=== PATIENT | female | born 1960 | race Caucasian/White ===

== ENCOUNTER 2016-10-25 19:48 | Emergency (ER) | payer BC ==
[2016-10-25 19:53] VITALS: BMI 23.1
[2016-10-25] MEDS ORDERED: FAMOTIDINE 20 MG/50 ML IVPB 50 ML IVPB ONE ×2 (21:59→22:22)
[2016-10-25] MEDS ORDERED: ONDANSETRON 4 MG/2 ML VIAL IVPB ONE (21:59)
[2016-10-25] MEDS ORDERED: SODIUM CHLORIDE 1,000 ML IV STA (21:59)
[2016-10-25] MEDS ORDERED: morphine CARPU-JECT 4 MG/1 ML DISP.SYRIN IVPUSH ONE (22:02)
--- NOTE | 2016-10-25 22:04 | PDOC ---
History of Present Illness - General Chief Complaint: Pain Stated Complaint: ABD PAIN, FEVER Time Seen by Provider: 10/25/16 21:35 - History of Present Illness Initial Comments: 10/25/16 22:32 Patient is a 56 yo female with a significant past medical history of recurrent UTIs who presents to the ED with complaints of generalized malaise, fevers, and abdominal pain for two days. She recently saw her PCP this morning, was diagnosed w/ UTI, had normal chest XR results and was prescribed levaquin for UTI. Patient reports her symptoms started tuesday afternoon with bodyaches and fevers. She states her symptoms progressively worsened and developed sharp diffuse abdominal pain, bilateral flank pain and lower back pain. Patient states that she has nausea without vomiting. Denies diarrhea. Patient took pepto bismol and motrin with minimal relief to symptoms. She reports urinary frequency but no dysuria. Patient reports constipation for a week but states that is not abnormal for her. Patient denies taking levaquin secondary to not being able to eat food. Denies sick contacts, chest pain, SOB. Denies vomiting and diarrhea. Denies any other symptoms. No surgical history. PMD Dr. Whitney " Past History - Past Medical History Allergies/Adverse Reactions: Allergies Allergy/AdvReac Type Severity Reaction Status Date / Time No Known Drug Allergies Allergy Verified 10/25/16 19:49 cats, dogs, dust Allergy Intermediate asthma Uncoded 10/25/16 19:49 Home Medications: Ambulatory Orders Glycerin Suppository Adult - 1 each RC ASDIR 10/25/16 Levofloxacin [Levaquin] mg PO ASDIR 10/25/16 GI Disorders: Yes (UTI) - Psycho/Social/Smoking Cessation Hx Anxiety: No Suicidal Ideation: No Smoking History: Never smoked Hx Alcohol Use: (occasional) Review of Systems - Review of Systems Comments:: 10/25/16 22:41 "GENERAL/CONSTITUTIONAL: + Fever, chills, malaise, sweating HEAD, EYES, EARS, NOSE AND THROAT: No change in vision. No ear pain or discharge. No sore throat. CARDIOVASCULAR: No chest pain or shortness of breath. RESPIRATORY: No cough, wheezing, or hemoptysis. GASTROINTESTINAL: +nausea, diffuse abdominal pain. Constipation. No diarrhea. GENITOURINARY: +flank pain, frequency No dysuria MUSCULOSKELETAL: + Body aches, back pain, SKIN: No rash NEUROLOGIC: +headache, No vertigo, loss of consciousness, or change in strength/sensation. ENDOCRINE: No increased thirst. No abnormal weight change. HEMATOLOGIC/LYMPHATIC: No anemia, easy bleeding, or history of blood clots. ALLERGIC/IMMUNOLOGIC: No hives or skin allergy. " *Physical Exam - Vital Signs Last Vital Signs Temp Pulse Resp BP Pulse Ox 101.9 F H 84 18 105/67 97 10/25/16 19:48 10/25/16 19:48 10/25/16 19:48 10/25/16 19:48 10/25/16 19:48 - Physical Exam Comments: 10/25/16 22:41 "GENERAL: Awake, alert, and fully oriented, in no acute distress HEAD: No signs of trauma EYES: PERRLA, EOMI, sclera anicteric, conjunctiva clear ENT: Auricles normal inspection, hearing grossly normal, nares patent, oropharynx clear without exudates. Moist mucosa NECK: Normal ROM, supple, no lymphadenopathy, JVD, or masses LUNGS: Breath sounds equal, clear to auscultation bilaterally. No wheezes, and no crackles HEART: Regular rate and rhythm, normal S1 and S2, no murmurs, rubs or gallops ABDOMEN: +Diffuse pain tender to palpations mostly notable in RLQ, no rebound/ guarding MUSCULOSKELETAL: +Bilateral cva tenderness Soft, nontender, normoactive bowel sounds. No guarding, no rebound. No masses EXTREMITIES: Normal range of motion, no edema. No clubbing or cyanosis. No cords, erythema, or tenderness NEUROLOGICAL: Cranial nerves II through XII grossly intact. Normal speech, normal gait SKIN: Warm, Dry, normal turgor, no rashes or lesions noted." ED Treatment Course - RADIOLOGY Radiology Studies Ordered: Category Date Time Status ABDOMEN & PELVIS CT WITH CONTR [CT] Stat CT Scan 10/25/16 21:58 Ordered Medical Decision Making - Medical Decision Making 10/25/16 22:42 56 F with generalized malaise, fevers, abdominal pain, nausea x 2 days. Diagnosed with UTI today. Exam notable for abdominal tenderness, most notably in the RLQ, as well as b/l CVAT. Possible pyelonephritis. HOwever, given abdominal tenderness, will r/o acute intraabdominal process such as acute appy vs colitis vs diverticulitis. - Labs - CTAP 10/26/16 02:27 CT abdomen/pelvis done at 11:16. Per tech, images were sent immediately to [facility]. I made multiple calls to [facility] and was told repeatedly that they could not find a CT scan on this patient. At approximately 1:25AM, after speaking with their IT department, the images were found. CT result posted at 2:[address] shows likely R pyelonephritis. Pt given 1 dose of levaquin IV. Pt has prescription for levaquin, will fill tomorrow and continue the regimen. *DC/Admit/Observation/Transfer Diagnosis at time of Disposition: Pyelonephritis - Discharge Dispostion Disposition: HOME Condition at time of disposition: Stable - Patient Instructions Printed Discharge Instructions: DI for Kidney Infection Additional Instructions: Take the Levaquin as prescribed to treat your kidney infection. Follow up with your primary doctor within 1 week for a re-evaluation. Return to the ER if you have persistent or worsening symptoms, high fevers, vomiting, or any other concerning symptoms.
[2016-10-25] MEDS ORDERED: ONDANSETRON 4 MG/2 ML VIAL ONE (22:22)
[2016-10-25] MEDS ORDERED: ACETAMINOPHEN 1000 MG/100 ML VIAL (NON FORMULARY) IVPB ONE (22:25)
[2016-10-25] MEDS ORDERED: ACETAMINOPHEN INJECTION 100 ML IVPB ONE (22:26)
[2016-10-26] MEDS ORDERED: LEVOFLOXACIN 500 MG IVPB 100 ML IVPB ONE (00:50)
[2016-10-26] MEDS: LEVOFLOXACIN 500 MG IVPB 100 ML IVPB ONE (01:00)
[2016-10-26 01:45] VITALS: BP 99/67; PULSE 55; TEMP 97.7
[2016-10-26] MEDS ORDERED: MAGNESIUM CITRATE 300 ML BOTTLE ONE (02:25)
[2016-10-26] MEDS ORDERED: MAGNESIUM CITRATE 300 ML BOTTLE PO ONE (02:26)
== END 2016-10-26 02:33 | disposition home or self-care (01) ==
LOC: FER 19:48
PROC: 3E033NZ Introduction of Analgesics, Hypnotics, Sedatives into Peripheral Vein, Percutaneous Approach (ICD-10-PCS; principal; 2016-10-25)
PROC: 3E033GC Introduction of Other Therapeutic Substance into Peripheral Vein, Percutaneous Approach (ICD-10-PCS; 2016-10-25)
PROC: 3E0337Z Introduction of Electrolytic and Water Balance Substance into Peripheral Vein, Percutaneous Approach (ICD-10-PCS; 2016-10-25)
DX: N12 Tubulo-interstitial nephritis, not specified as acute or chronic (principal); Z87.440 Personal history of urinary (tract) infections
CPT/HCPCS: 74177-TC; 99283-25

== ENCOUNTER 2016-10-28 18:14 | Emergency (ER) | payer BC ==
[2016-10-28 18:24] VITALS: BP 105/71; PULSE 77; TEMP 98.1; BMI 22.4
--- NOTE | 2016-10-28 18:42 | PDOC ---
History of Present Illness <Marcel Avalos - Last Filed: 10/28/16 18:41> - History of Present Illness Initial Comments: 10/28/16 18:48 Patient is a 56 year old female with a significant past medical history of recurrent UTIs, s/p recent ED visit (10/25/16) for pyelonephritis and started on Levaquin, who returns to the emergency department for complaints of shortness of breath and pleuritic sternal chest pain since starting Levaquin. She states she has taken Levaquin in the past, however, only 250mg and never a 500mg dose. She reports about 4 doses of Levaquin since her diagnoses for pylonephritis. The patient states she was prompted to come into the ED when she had to sit secondary to her dyspnea after walking just a short distance. The patient states her chest pain is intermittent and exacerbated with breathing. She localizes her pain to the middle of her chest and denies radiation of pain. She reports traveling to [place] and then [facility] about a month ago. She denies sick contacts, chest pain, headache, or lightheadedness. She denies nausea, vomiting, and diarrhea. She denies any other symptoms. Denies surgical history. Allergies: NKDA PCP: Dr. Vikas Whitney <Sofía Lam - Last Filed: 10/28/16 19:31> - General Chief Complaint: Shortness of Breath Stated Complaint: SOB Past History - Past Medical History GI Disorders: Yes (UTI) - Psycho/Social/Smoking Cessation Hx Anxiety: No Suicidal Ideation: No Smoking History: Never smoked Have you smoked in the past 12 months: No Information on smoking cessation initiated: No Hx Alcohol Use: No Drug/Substance Use Hx: No Substance Use Type: None <Marcel Avalos - Last Filed: 10/28/16 18:41> <Sofía Lam - Last Filed: 10/28/16 19:31> - Past Medical History Allergies/Adverse Reactions: Allergies Allergy/AdvReac Type Severity Reaction Status Date / Time No Known Drug Allergies Allergy Verified 10/28/16 18:16 cats, dogs, dust Allergy Intermediate asthma Uncoded 10/28/16 18:16 Home Medications: Ambulatory Orders Glycerin Suppository Adult - 1 each RC ASDIR 10/25/16 Levofloxacin [Levaquin] 1 tab PO ASDIR 10/25/16 Review of Systems - Review of Systems Able to Perform ROS?: Yes Comments:: 10/28/16 18:48 GENERAL/CONSTITUTIONAL: No fever or chills. No weakness. HEAD, EYES, EARS, NOSE AND THROAT: No change in vision. No ear pain or discharge. No sore throat. CARDIOVASCULAR: (+) pleuritic chest pain and shortness of breath. RESPIRATORY: No cough, wheezing, or hemoptysis. GASTROINTESTINAL: No nausea, vomiting, diarrhea or constipation. GENITOURINARY: No dysuria, frequency, or change in urination. MUSCULOSKELETAL: No joint or muscle swelling or pain. No neck or back pain. SKIN: No rash NEUROLOGIC: No headache, vertigo, loss of consciousness, or change in strength/ sensation. ENDOCRINE: No increased thirst. No abnormal weight change. HEMATOLOGIC/LYMPHATIC: No anemia, easy bleeding, or history of blood clots. ALLERGIC/IMMUNOLOGIC: No hives or skin allergy. <Sofía Lam - Last Filed: 10/28/16 19:31> *Physical Exam - Vital Signs Last Vital Signs Temp Pulse Resp BP Pulse Ox 98.1 F 77 20 105/71 100 10/28/16 18:15 10/28/16 18:15 10/28/16 18:15 10/28/16 18:15 10/28/16 18:15 <Marcel Avalos - Last Filed: 10/28/16 18:41> - Vital Signs Last Vital Signs Temp Pulse Resp BP Pulse Ox 98.1 F 77 20 105/71 100 10/28/16 18:15 10/28/16 18:15 10/28/16 18:15 10/28/16 18:15 10/28/16 18:15 - Physical Exam Comments: 10/28/16 18:49 GENERAL: Awake, alert, and fully oriented, in no acute distress HEAD: No signs of trauma EYES: PERRLA, EOMI, sclera anicteric, conjunctiva clear ENT: Auricles normal inspection, hearing grossly normal, nares patent, oropharynx clear without exudates. Moist mucosa NECK: Normal ROM, supple, no lymphadenopathy, JVD, or masses LUNGS: Breath sounds equal, clear to auscultation bilaterally. No wheezes, and no crackles HEART: Regular rate and rhythm, normal S1 and S2, no murmurs, rubs or gallops ABDOMEN: Soft, nontender, normoactive bowel sounds. No guarding, no rebound. No masses EXTREMITIES: Normal range of motion, no edema. No clubbing or cyanosis. No cords, erythema, or tenderness NEUROLOGICAL: Cranial nerves II through XII grossly intact. Normal speech, normal gait SKIN: Warm, Dry, normal turgor, no rashes or lesions noted. <Sofía Lam - Last Filed: 10/28/16 19:31> ED Treatment Course - LABORATORY CBC & Chemistry Diagram: 10/28/16 19:00 10/28/16 19:00 <Sofía Lam - Last Filed: 10/28/16 19:31> *DC/Admit/Observation/Transfer - Attestations Physician Attestion: 10/28/16 18:41 I, Dr. Marcel Avalos, attest that this document has been prepared under my direction and personally reviewed by me in its entirety. I further attest, that it accurately reflects all work, treatment, procedures and medical decision -making performed by me. <Marcel Avalos - Last Filed: 10/28/16 18:41> - Attestations Scribe Attestion: 10/28/16 18:49 Documentation prepared by Sofía Lam, acting as director medical for Marcel Avalos MD <Sofía Lam - Last Filed: 10/28/16 19:31>
[2016-10-28] MEDS ORDERED: SODIUM CHLORIDE 2,000 ML IV STA (18:48)
[2016-10-28 19:12] LABS: BASOPHIL 2.1 % (0-2.0); EOSINOPHIL 2.8 % (0-4.5); MCH 31.8 pg (25.7-33.7); MCHC 34.2 g/dl (32.0-36.0); MEAN PLT VOLUME 7.8 fl (7.5-11.1); NEUTROPHILS 64.8 % (42.8-82.8); PLATELET COUNT 313 K/MM3 (134-434); RDW 12.6 % (11.6-15.6); WHITE BLOOD COUNT 6.1 K/mm3 (4.0-10.8)
[2016-10-28 19:15] LABS: INR 1.11 (0.82-1.09); PROTHROMBIN TIME (PATIENT) 12.4 SEC (10.2-13.0)
[2016-10-28 19:18] LABS: ALBUMIN 3.4 g/dl (3.5-5.0); ALK PHOS 66 U/L (32-92); ANION GAP 9 (8-16); BILIRUBIN,TOTAL 0.5 mg/dl (0.2-1.0); CALCIUM 9.3 mg/dl (8.4-10.2); CO2 27 mmol/L (22-28); CPK 45 IU/L (26-192); CREATININE 0.8 mg/dl (0.6-1.3); GLUCOSE,RANDOM 89 mg/dl (74-106); SGOT/AST 22 U/L (10-42); SGPT/ALT 19 U/L (10-40); TOT PROT 6.5 g/dl (6.4-8.3)
[2016-10-28 19:39] LABS: TROPONIN I (DFP) < 0.03 ng/ml (0.03-0.50)
--- NOTE | 2016-10-28 23:37 | PDOC ---
*Physical Exam - Vital Signs Last Vital Signs Temp Pulse Resp BP Pulse Ox 98.1 F 77 20 105/71 100 10/28/16 18:15 10/28/16 18:15 10/28/16 18:15 10/28/16 19:01 10/28/16 18:15 - Physical Exam Comments: 10/28/16 23:33 pt signed out by Dr. Avalos as chest pain and shortness of breath pending evaluation for PE. D dimer is positive. Ct Chest performed with no evidence of PE. Patient feels improved. Will discharge home with follow up with PMD. ED Treatment Course - LABORATORY CBC & Chemistry Diagram: 10/28/16 19:00 10/28/16 19:00 - ADDITIONAL ORDERS Additional order review: Laboratory Results 10/28/16 10/28/16 19:00 19:00 INR 1.11 D-Dimer 391 H Sodium 136 Potassium 3.7 Chloride 100 Carbon Dioxide 27 Anion Gap 9 BUN 13 D Creatinine 0.8 Creat Clearance w eGFR > 60 Random Glucose 89 Calcium 9.3 Total Bilirubin 0.5 D AST 22 ALT 19 Alkaline Phosphatase 66 Creatine Kinase 45 Troponin I < 0.03 L Total Protein 6.5 Albumin 3.4 L 10/28/16 19:00 RBC 4.06 MCV 93.0 MCHC 34.2 RDW 12.6 MPV 7.8 D Neutrophils % 64.8 Lymphocytes % 20.7 D Monocytes % 9.6 Eosinophils % 2.8 Basophils % 2.1 H - RADIOLOGY Radiology Studies Ordered: Category Date Time Status CHEST CTA [CT] Stat CT Scan 10/28/16 21:38 Completed - Medications Given in the ED: ED Medications Discontinued Medications Generic Name Dose Route Start Last Admin Trade Name Freq PRN Reason Stop Dose Admin Sodium Chloride 2,000 mls @ 1,000 mls/hr 10/28/16 18:48 10/28/16 19:01 Normal Saline - IV 10/28/16 20:47 1,000 mls/hr ASDIR STA Administration *DC/Admit/Observation/Transfer Diagnosis at time of Disposition: Shortness of breath - Discharge Dispostion Disposition: HOME Condition at time of disposition: Good Admit: No - Patient Instructions Printed Discharge Instructions: DI for Shortness of Breath Additional Instructions: return to the ED for fever, severe abdominal pain, severe chest pain or shortness of breath. Make sure that you follow up with your doctor. There was a finding in your kidney that is probably related to the infection but needs to be followed up. You should have a renal ultrasound when your infection is resolved.
--- NOTE | 2016-10-29 08:20 | EKG ---
Test Reason : Blood Pressure : / mmHG Vent. Rate : 060 BPM Atrial Rate : 060 BPM P-R Int : 138 ms QRS Dur : 086 ms QT Int : 416 ms P-R-T Axes : 071 052 061 degrees QTc Int : 416 ms SINUS RHYTHM RSR' OR QR PATTERN IN V1 SUGGESTS RIGHT VENTRICULAR CONDUCTION DELAY NO PREVIOUS ECGS AVAILABLE Confirmed by LESLY CUTLER MD ([id number]) on 10/29/2016 8:20:06 AM Referred By: DR EDMONDS Confirmed By:LESLY CUTLER MD
== END 2016-10-28 23:40 | disposition home or self-care (01) ==
LOC: FER 18:14
PROC: 3E0337Z Introduction of Electrolytic and Water Balance Substance into Peripheral Vein, Percutaneous Approach (ICD-10-PCS; principal; 2016-10-28)
DX: R06.02 Shortness of breath (principal); Z87.440 Personal history of urinary (tract) infections; N12 Tubulo-interstitial nephritis, not specified as acute or chronic
CPT/HCPCS: 36415; 71010-TC; 71275-TC; 80053; 84484; 85025; 85379; 85610; 93005; 99284-25

== ENCOUNTER 2017-05-26 13:22 | Emergency (ER) | payer BC ==
--- NOTE | 2017-05-26 13:42 | PDOC ---
History of Present Illness - General Stated Complaint: CHEST PAIN Time Seen by Provider: 05/26/17 13:41 - History of Present Illness Initial Comments: 05/26/17 14:15 Pt left after evaluation by medical student. Stated she was going to [facility]. We attempted to call patient on listed number but no reply. Past History - Past Medical History Allergies/Adverse Reactions: Allergies Allergy/AdvReac Type Severity Reaction Status Date / Time No Known Drug Allergies Allergy Verified 10/28/16 18:16 cats, dogs, dust Allergy Intermediate asthma Uncoded 10/28/16 18:16 Home Medications: Ambulatory Orders Glycerin Suppository Adult - 1 each RC ASDIR 10/25/16 Levofloxacin [Levaquin] 1 tab PO ASDIR 10/25/16 GI Disorders: Yes (UTI) - Suicide/Smoking/Psychosocial Hx Smoking History: Never smoked Have you smoked in the past 12 months: No Hx Alcohol Use: No Drug/Substance Use Hx: No Substance Use Type: None *DC/Admit/Observation/Transfer - Discharge Dispostion Disposition: LEFT BEFORE YAYA MORAN - Referrals - Patient Instructions - Post Discharge Activity
== END 2017-05-26 15:00 | disposition left against medical advice (07) ==
LOC: FER 13:22
DX: Z53.21 Procedure and treatment not carried out due to patient leaving prior to being seen by health care provider (principal)
CPT/HCPCS: 71046-TC-FY; 99281-25